=== PATIENT | female | born 2000 | race Caucasian/White ===

== ENCOUNTER 2022-12-26 23:45 | Emergency (ER) | payer MEDICAID ==
[~2022-12-26] VITALS: Ht 170.2 cm; Wt 68.0 kg
[2022-12-27] VITALS: BP 98/45
[2022-12-27 00:26] LABS: BASOPHILS % 0.2 % (0.0-2.0); EOSINOPHILS % 0.6 % (0.0-5.0); HEMATOCRIT. 33.8 % (36.0-48.0); HEMOGLOBIN. 11.6 g/dL (12.0-16.0); LYMPHOCYTES % 26.4 % (20.0-50.0); MEAN PLATELET VOLUME 8.4 fl (7.4-10.4); NEUTROPHILS % 68.8 % (40.0-76.0); PLATELET 252 x1000/uL (130-400); RED BLOOD CELL COUNT 3.76 mill/uL (4.2-5.4); RED CELL DISTRIBUTION WIDTH 12.7 % (11.6-14.6)
[2022-12-27 00:39] LABS: CHLORIDE 107 mEq/L (98-107)
[2022-12-27 01:04] LABS: B-HCG QUANTITATIVE 28257 mIU/mL (<3)
[2022-12-27 03:02] LABS: CLARITY URINE CLEAR (CLEAR); COLOR URINE YELLOW (YELLOW); KETONES URINE 3+ (NEGATIVE); LEUKOCYTE ESTERASE URINE TRACE (NEGATIVE); NITRITE URINE NEGATIVE (NEGATIVE); OCCULT BLOOD URINE NEGATIVE (NEGATIVE); PROTEIN URINE NEGATIVE (NEGATIVE); SPECIFIC GRAVITY URINE 1.026 (1.005-1.030)
[2022-12-27] MEDS ORDERED: PREN1COM16 MT (05:41)
[2022-12-27] MEDS ORDERED: CEPH500C2 MT (05:41)
== END 2022-12-27 06:20 | disposition home or self-care (01) ==
LOC: ER 23:45
DX: O21.9 Vomiting of pregnancy, unspecified (principal); O26.892 Other specified pregnancy related conditions, second trimester; R10.31 Right lower quadrant pain; Z3A.18 18 weeks gestation of pregnancy
CPT/HCPCS: 36415; 72195; 74181; 76805; 80053; 81003; 84702; 85025; 99284

== ENCOUNTER 2022-12-31 20:51 | Emergency (ER) | payer MEDICAID ==
[~2022-12-31] VITALS: Ht 170.2 cm; Wt 68.0 kg
[~2022-12-31 20:51] MED LIST: CEPH500C2 MT; PREN1COM16 MT
[2022-12-31 21:05] VITALS: BP 100/55
[2022-12-31] MEDS ORDERED: ACETAMINOPHEN 325MG TABLET PO ONE (23:45)
[2022-12-31 23:50] LABS: CLARITY URINE CLOUDY (CLEAR); COLOR URINE YELLOW (YELLOW); KETONES URINE NEGATIVE (NEGATIVE); LEUKOCYTE ESTERASE URINE 1+ (NEGATIVE); NITRITE URINE NEGATIVE (NEGATIVE); OCCULT BLOOD URINE NEGATIVE (NEGATIVE); PH URINE 6.5 (4.5-8.0); PROTEIN URINE NEGATIVE (NEGATIVE); SPECIFIC GRAVITY URINE 1.022 (1.005-1.030)
[2023-01-01 00:12] LABS: BASOPHILS % 0.3 % (0.0-2.0); EOSINOPHILS % 0.6 % (0.0-5.0); HEMATOCRIT. 35.8 % (36.0-48.0); HEMOGLOBIN. 12.3 g/dL (12.0-16.0); MEAN CORPUSCULAR HEMOGLOBIN 30.9 pg (28.0-32.0); MEAN CORPUSCULAR VOLUME 89.9 fL (81.0-99.0); MEAN PLATELET VOLUME 8.6 fl (7.4-10.4); MONOCYTES % 6.1 % (2.0-8.0); PLATELET 238 x1000/uL (130-400); RED BLOOD CELL COUNT 3.98 mill/uL (4.2-5.4); RED CELL DISTRIBUTION WIDTH 12.9 % (11.6-14.6)
[2023-01-01 00:17] LABS: CHLORIDE 106 mEq/L (98-107)
== END 2023-01-01 02:24 | disposition home or self-care (01) ==
LOC: ER 20:51
DX: O23.32 Infections of other parts of urinary tract in pregnancy, second trimester (principal); Z3A.20 20 weeks gestation of pregnancy
CPT/HCPCS: 36415; 76805; 76857; 80053; 81003; 81025; 85025; 99284

== ENCOUNTER 2023-01-01 02:54 | Observation (INO) | payer MEDICAID ==
[~2023-01-01] VITALS: Ht 165.1 cm; Wt 77.1 kg
[2023-01-01] MEDS ORDERED: ACETAMINOPHEN WITH CODEINE 300/30MG TABLET PO ONE (04:45)
[2023-01-01] MEDS ORDERED: SODIUM CHLORIDE 0.9% 1,000 ML IV ONE (05:00)
[2023-01-01 05:28] VITALS: BP 120/57
[2023-01-01 05:36] LABS: CLARITY URINE CLEAR (CLEAR); COLOR URINE YELLOW (YELLOW); KETONES URINE 1+ (NEGATIVE); LEUKOCYTE ESTERASE URINE TRACE (NEGATIVE); NITRITE URINE NEGATIVE (NEGATIVE); OCCULT BLOOD URINE NEGATIVE (NEGATIVE); PH URINE 5.5 (4.5-8.0); PROTEIN URINE NEGATIVE (NEGATIVE); SPECIFIC GRAVITY URINE 1.023 (1.005-1.030)
[2023-01-01 09:08] LABS: BASOPHILS % 0.2 % (0.0-2.0); EOSINOPHILS % 0.6 % (0.0-5.0); HEMATOCRIT. 31.5 % (36.0-48.0); HEMOGLOBIN. 10.9 g/dL (12.0-16.0); LYMPHOCYTES % 23.4 % (20.0-50.0); MEAN CORPUSCULAR HEMOGLOBIN 31.3 pg (28.0-32.0); MEAN CORPUSCULAR VOLUME 90.5 fL (81.0-99.0); MEAN PLATELET VOLUME 8.7 fl (7.4-10.4); MONOCYTES % 5.9 % (2.0-8.0); NEUTROPHILS % 69.9 % (40.0-76.0); PLATELET 203 x1000/uL (130-400); RED BLOOD CELL COUNT 3.48 mill/uL (4.2-5.4); RED CELL DISTRIBUTION WIDTH 12.9 % (11.6-14.6)
== END 2023-01-01 10:15 | disposition home or self-care (01) ==
LOC: 8 EST LDRP 02:54
PROVIDERS: ADMIT Specialist; ATTEND Specialist
DX: O26.892 Other specified pregnancy related conditions, second trimester (principal); R10.9 Unspecified abdominal pain; R51.9 Headache, unspecified; N89.8 Other specified noninflammatory disorders of vagina; Z3A.20 20 weeks gestation of pregnancy
CPT/HCPCS: 36415; 59025; 76770; 81003; 85025; 96360; 96361; G0378; 99281

== ENCOUNTER 2024-05-05 20:39 | Emergency (ER) | payer BC, MEDICAID ==
[~2024-05-05] VITALS: Ht 167.6 cm; Wt 66.5 kg
[2024-05-05 21:29] VITALS: O2SAT 97
[2024-05-05 21:44] LABS: BASOPHILS % 0.1 % (0.0-2.0); EOSINOPHILS % 0.7 % (0.0-5.0); HEMATOCRIT. 40.1 % (36.0-48.0); HEMOGLOBIN. 13.4 g/dL (12.0-16.0); LYMPHOCYTES % 15.7 % (20.0-50.0); MEAN CORPUSCULAR HEMOGLOBIN 29.6 pg (28.0-32.0); MEAN CORPUSCULAR HGB CONC 33.3 g/dL (31.0-37.0); MEAN PLATELET VOLUME 8.6 fl (7.4-10.4); MONOCYTES % 5.3 % (2.0-8.0); NEUTROPHILS % 78.2 % (40.0-76.0); PLATELET 206 x1000/uL (130-400); RED BLOOD CELL COUNT 4.51 mill/uL (4.2-5.4); WHITE BLOOD COUNT 4.9 x1000/uL (4.5-11.0)
[2024-05-05 21:48] LABS: CHLORIDE 111 mEq/L (98-107); POTASSIUM 4.1 mEq/L (3.5-5.1); SODIUM 139 mEq/L (136-145)
[2024-05-05 21:49] LABS: CARBON DIOXIDE 22 mEq/L (21-32)
[2024-05-05 21:50] LABS: CALCIUM 9.2 mg/dL (8.7-10.4)
[2024-05-05 21:54] LABS: CREATININE 0.7 mg/dL (0.6-1.0); GLUCOSE 112 mg/dL (70-105)
[2024-05-05 21:55] LABS: HCG SCREEN NEGATIVE; UREA NITROGEN BLOOD 16 mg/dL (9-23)
[2024-05-05 21:56] LABS: ALANINE AMINOTRANSFERASE 9 IU/L (10-49); ALBUMIN 4.8 g/dL (3.2-4.8); ASPARTATE AMINOTRANSFERASE 19 IU/L (<34); CLARITY URINE CLEAR (CLEAR); COLOR URINE ORANGE (YELLOW); GLUCOSE URINE NEGATIVE (NEGATIVE); KETONES URINE 1+ (NEGATIVE); LEUKOCYTE ESTERASE URINE NEGATIVE (NEGATIVE); NITRITE URINE NEGATIVE (NEGATIVE); OCCULT BLOOD URINE NEGATIVE (NEGATIVE); PROTEIN URINE NEGATIVE (NEGATIVE); SPECIFIC GRAVITY URINE 1.039 (1.005-1.030)
[2024-05-05 21:57] LABS: BILIRUBIN DIRECT 0.4 mg/dL (<=3.0); BILIRUBIN TOTAL 1.4 mg/dL (0.1-1.0); PROTEIN TOTAL 7.4 g/dL (6.0-8.3)
[2024-05-05] MEDS ORDERED: KETOROLAC 30MG/ML VIAL IM ONE (22:30)
[2024-05-05] MEDS ORDERED: ONDANSETRON 4MG ODT PO ONE (22:30)
[2024-05-06] MEDS: ONDANSETRON 4MG ODT PO NR (01:15)
[2024-05-06] MEDS: KETOROLAC 30MG/ML VIAL IM NR (01:15)
[2024-05-06] MEDS ORDERED: IBUP-2028 MT (01:59)
[2024-05-06 02:30] VITALS: BP 135/66; PULSE 84; RESP 18; TEMP 36.94740; O2SAT 97
== END 2024-05-06 02:30 | disposition home or self-care (01) ==
LOC: ER 20:39
DX: R10.9 Unspecified abdominal pain (principal); R11.2 Nausea with vomiting, unspecified
CPT/HCPCS: 99285; 74176; 80076; 80048; 81003; 84703; 83690; 85025; 36415; 76705; 96372; Q0162; J1885

== ENCOUNTER 2025-05-12 11:37 | Emergency (ER) | payer MEDICAID, BC ==
[~2025-05-12] VITALS: Ht 167.6 cm; Wt 70.0 kg
[~2025-05-12 11:37] MED LIST changes: +IBUP-2028 MT
[2025-05-12 11:59] VITALS: O2SAT 98
[2025-05-12] MEDS: FAMOTIDINE 20MG TABLET PO SCH (12:37)
[2025-05-12] MEDS: ONDANSETRON 4MG ODT PO ONE (12:37)
[2025-05-12 13:05] LABS: BASOPHILS % 0.2 % (0.0-2.0); EOSINOPHILS % 0.9 % (0.0-5.0); HEMATOCRIT. 39.8 % (36.0-48.0); HEMOGLOBIN. 13.5 g/dL (12.0-16.0); LYMPHOCYTES % 22.4 % (20.0-50.0); MEAN PLATELET VOLUME 8.4 fl (7.4-10.4); MONOCYTES % 5.4 % (2.0-8.0); NEUTROPHILS % 71.1 % (40.0-76.0); PLATELET 221 x1000/uL (130-400); RED BLOOD CELL COUNT 4.55 mill/uL (4.2-5.4); RED CELL DISTRIBUTION WIDTH 12.6 % (11.6-14.6)
[2025-05-12 13:30] LABS: CREATININE 0.7 mg/dL (0.6-1.0)
[2025-05-12 13:31] LABS: UREA NITROGEN BLOOD 13 mg/dL (9-23)
[2025-05-12 13:32] LABS: ASPARTATE AMINOTRANSFERASE 14 IU/L (<34)
[2025-05-12 13:33] LABS: BILIRUBIN DIRECT 0.7 mg/dL (<=3.0); BILIRUBIN TOTAL 2.3 mg/dL (0.1-1.0); PROTEIN TOTAL 7.2 g/dL (6.0-8.3)
[2025-05-12] MEDS ORDERED: FAMO40TA70 MT (18:24)
[2025-05-12] MEDS ORDERED: ONDA4TAB50 MT (18:24)
[2025-05-12 18:39] VITALS: BP 114/82; PULSE 65; RESP 16; TEMP 36.7; O2SAT 100
== END 2025-05-12 18:40 | disposition home or self-care (01) ==
LOC: ER 11:47
DX: K29.00 Acute gastritis without bleeding (principal); R11.2 Nausea with vomiting, unspecified
CPT/HCPCS: 99284; 76705; 80076; 80048; 81025; 85025; 36415; Q0162